=== PATIENT | male | born 1990 | race African-American/Black ===

== ENCOUNTER 2017-04-04 15:00 | Inpatient (IN) | payer OTHER ==
--- NOTE | ~2017-04-04 | PN ---
Unit #: [id number] #: [id number] Patient: TAHIR IGNACIO [id number] [facility] [address] [place] [address] [id number] MR#: [id number] NAME: TAHIR IGNACIO ROOM: [facility] Age: 26 Sex: M Admission Date: 04/04/2017 : 1990 Attending Physician: Jean-Claude Sosa M.D. Admitting Physician: Jean-Claude Sosa M.D. Primary Care Physician: Primary Care Physician Emily CISNEROS NOTES DATE OF SERVICE: 04/08/2017 DISCUSSION Tahir Ignacio is a 26-year-old male, seen on 04/08/2017. The patient interviewed, chart reviewed, and obtained information from nursing staff. The patient is sad, dysphoric, flat affect, but denied any thoughts of harming self or others. Participating in program. Compliant with medication. REVIEW OF SYSTEMS Complete review of systems unremarkable. MENTAL STATUS EXAMINATION General appearance; the patient dressed casually. Attention span and concentration, fair. Oriented in time, place, and person. Mood and affect, sad and dysphoric. Speech, monotone. Thought process, concrete. The patient denied any thoughts of harming self or others or any psychotic symptom. Recent and remote memory, poor. Insight and judgment, poor. DIAGNOSES 1. Bipolar mood disorder, not otherwise specified. 2. Cocaine use disorder, moderate. ASSESSMENT/PLAN Advised to continue with current medication and therapeutic protocol. If needed, consider further adjustment of medication. Dictated by... Latrell Beasley/fazal TD: 04/09/2017 22:09 JOB #: [id number] Unit #: [id number] #: [id number] Patient: TAHIR IGNACIO PROGRESS NOTES Page 1 of 1 X Jean-Claude Sosa MD PROGRESS NOTE
--- NOTE | ~2017-04-04 | PN ---
Unit #: [id number] #: [id number] Patient: TAHIR IGNACIO [id number] [facility] [address] [place] [address] [id number] MR#: [id number] NAME: TAHIR IGNACIO ROOM: [facility] Age: 26 Sex: M Admission Date: 04/04/2017 : 1990 Attending Physician: Jean-Claude Sosa M.D. Admitting Physician: Latrell Beasley PROGRESS NOTES DATE OF SERVICE: 04/06/2017 DISCUSSION Tahir Ignacio is a 26-year-old male, seen on 04/06/2017. The patient interviewed, chart reviewed, and obtained information from nursing staff. The patient was compliant and cooperative. Mood was sad, dysphoric, flat affect, guarded. The patient's vital signs stable; temperature 98.4, pulse 59, and blood pressure 94/59. The patient was able to maintain safe behavior, withdrawn, isolative, guarded, requested for larger portion. Complete review of systems unremarkable. MENTAL STATUS EXAMINATION General appearance, the patient dressed casually. Attention span and concentration, fair. Oriented in time, place, and person. Mood and affect, sad and dysphoric. Speech, monotone. Thought process, concrete. The patient denied any thoughts of harming self or others. Recent and remote memory, poor. Insight and judgment, poor. DIAGNOSES 1. Mood disorder, not otherwise specified. 2. Cocaine use disorder, severe. ASSESSMENT AND PLAN Advised to continue with current medication and therapeutic protocol. If needed, consider further adjustment of medication. Dictated by... Latrell Beasley/fazal TD: 04/07/2017 23:46 JOB #: [id number] Unit #: [id number] #: [id number] Patient: TAHIR IGNACIO PROGRESS NOTES Page 1 of 1 X Jean-Claude Sosa MD PROGRESS NOTE
--- NOTE | ~2017-04-04 | PN ---
Unit #: [id number] #: [id number] Patient: TAHIR IGNACIO [id number] [facility] [address] [place] [address] [id number] MR#: [id number] NAME: TAHIR IGNACIO ROOM: [facility] Age: 26 Sex: M Admission Date: 04/04/2017 : 1990 Attending Physician: Jean-Claude Sosa M.D. Admitting Physician: Jean-Claude Sosa M.D. Primary Care Physician: Primary Care Physician Emily MAYERS PROGRESS NOTES DATE 04/07/2017 DISCUSSION Mr. Tahir Ignacio is a 26-year-old male, seen on 04/07/2017. The patient dressed casually. Attention span and concentration fair. Mood and affect sad and dysphoric, withdrawn, isolative, but eating good, compliant with medication, able to participate in some of the group, able to contract for safety, making progress. REVIEW OF SYSTEMS Complete review of systems unremarkable. MENTAL STATUS EXAMINATION General appearance: Patient dressed casually. Attention span and concentration, fair. Oriented to place and person. Mood and affect, labile. Speech, monotone. Thought process, concrete. The patient denied any thoughts of harming self or others. Recent and remote memory, poor. Insight and judgment, poor. DIAGNOSES 1. Mood disorder, NOS. 2. Cocaine use disorder, severe. ASSESSMENT/PLAN Advised to continue with the current medication and therapeutic protocol, and if needed consider further adjustment of medication. Dictated by... Latrell Beasley/farshad TD: 04/08/2017 09:58 JOB #: [id number] Unit #: [id number] #: [id number] Patient: TAHIR IGNACIO PROGRESS NOTES Page 1 of 1 X Jean-Claude Sosa MD X PROGRESS NOTE
--- NOTE | ~2017-04-04 | DS ---
Unit #: [id number] #: [id number] Patient: ANAYELI ZAMORA [id number] [facility] [address] [place] [address] [id number] MR#: [id number] NAME: ANAYELI ZAMORA ROOM: [facility] Age: 26 Sex: M Admission Date: 04/04/2017 : 1990 Discharge Date: 04/09/2017 Attending Physician: Jean-Claude Sosa M.D. Primary Care Physician: Primary Care Physician No DISCHARGE SUMMARY REASON FOR ADMISSION Depression and substance abuse. DIAGNOSTIC STUDIES LABORATORY RESULTS: Urine drug screen positive for cocaine. HOSPITAL COURSE The patient was admitted to inpatient unit on 04/04/2017 and discharged on 04/09/2017. The patient's home medication resumed. The patient was treated with detox protocol and detox monitoring. The patient was able to show improvement in his mood and affect. Subsequently, the patient was discharged with a plan to follow up in outpatient program. DISCHARGE MEDICATIONS Celexa 20 mg daily for depression. DISCHARGE DIAGNOSES Psychiatric: 1. Major depressive disorder, recurrent, severe, F33.2. 2. Cocaine use disorder, severe, F14.20. Secondary diagnosis: Deferred. Medical diagnosis: Positive human immunodeficiency virus, diagnosed in 2011, the patient followed in [facility]. Stressors: Psychosocial stressors. DISCHARGE INSTRUCTIONS The patient is to follow up in outpatient clinic as per health care social worker. CONDITION ON DISCHARGE The patient was pleasant and cooperative. Denied any psychotic symptom or any suicidal ideation. PROGNOSIS Guarded. DIET AND ACTIVITY As tolerated. Dictated by... Jean-Claude Sosa M.D. Unit #: [id number] #: [id number] Patient: ANAYELI ZAMORA SZC/modl TD: 04/10/2017 03:17 JOB #: [id number] DISCHARGE SUMMARY Page 1 of 1 X Jean-Claude Sosa MD X DISCHARGE SUMMARY
--- NOTE | ~2017-04-04 | PN ---
Unit #: [id number] #: [id number] Patient: TAHIR ZAMORA [id number] [facility] [address] [place] [address] [id number] I MR#: [id number] NAME: TAHIR ZAMORA ROOM: [facility] Age: 26 Sex: M Admission Date: 04/04/2017 : 1990 Attending Physician: Jean-Claude Sosa M.D. Admitting Physician: Jean-Claude Sosa M.D. Primary Care Physician: Primary Care Physician Emily MAYERS PROGRESS NOTES DATE 04/05/2017 DISCUSSION Tahir is a 26-year-old male. The patient interviewed, chart reviewed. Obtained information from nursing staff. The patient was compliant and cooperative. Mood sad, dysphoric, flat affect guarded. The patient withdrawn, isolative. Dressed casually. Complete review of systems unremarkable. MENTAL STATUS EXAMINATION General appearance, the patient dressed casually. Attention span and concentration fair. Oriented to time, place and person. Mood and affect sad, depressed. Speech monotone. Thought process concrete. The patient reported having suicidal ideation. Denied any homicidal ideation or any psychotic symptoms. Recent and remote memory poor. Insight and judgement poor. DIAGNOSES 1. Major depression recurrent. 2. Cocaine use disorder severe. ASSESSMENT/PLAN Advise to continue with current medication and therapeutic protocol. If needed consider further adjustment of medication. Dictated by... Latrell Beasley/magy TD: 04/07/2017 01:54 JOB #: [id number] Unit #: [id number] #: [id number] Patient: TAHIR ZAMORA PROGRESS NOTES Page 1 of 1 X Jean-Claude Sosa MD PROGRESS NOTE
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
[2017-04-05 09:44] LABS: BASOPHIL# 0.1 X10e3 (0-0.3); BASOPHIL% 0.7 % (0-2.5); EOSINOPHIL# 0.2 X10e3 (0-0.7); EOSINOPHIL% 3.1 % (0.0-7.0); HEMATOCRIT 48.3 % (38.0-50.0); LYMPHOCYTE# 3.3 X10e3 (1.0-3.5); LYMPHOCYTE% 43.1 % (17.0-45.0); MEAN CELL VOLUME 88.6 FL (83-96); MEAN CORPUSCULAR HEMOGLOBIN 29.4 PG (28-34); MEAN CORPUSCULAR HGB CONC 33.2 g/dL (30-36); MEAN PLATELET VOLUME 8.1 FL (6.5-11.5); MONOCYTE# 0.6 X10e3 (0-1.0); MONOCYTE% 7.7 % (3.0-12.0); NEUTROPHIL# 3.4 X10e3 (1.5-7.1); NEUTROPHIL% 45.4 % (40-75); PLATELET COUNT 140 X10e3 (140-420); RED BLOOD COUNT 5.45 X10e (3.90-5.60); RED CELL DISTRIBUTION WIDTH 14.1 % (11.0-15.5); WHITE BLOOD COUNT 7.6 X10e3 (4.0-10.5)
[2017-04-05 09:53] LABS: DIFF IND NO
[2017-04-05 12:58] LABS: ALBUMIN SERUM 4.3 g/dL (3.5-5.0); BILIRUBIN,TOTAL 1.1 mg/dL (0.2-2.0); BUN/CREATININE RATIO 13.75; CALCIUM SERUM 9.5 mg/dL (8.4-10.2); CREATININE SERUM 1.6 mg/dL (0.6-1.4); GLOM FILT RATE Estimated 67.9 mL/min (>60); POTASSIUM 4.5 mmol/L (3.5-5.1)
== END 2017-04-09 10:45 | DRG 885 ==
LOC: P1E 17:57
PROVIDERS: Psychiatry & Neurology Psychiatry
DX: F33.2 Major depressive disorder, recurrent severe without psychotic features (principal); F14.20 Cocaine dependence, uncomplicated; Z21 Asymptomatic human immunodeficiency virus [HIV] infection status; F17.210 Nicotine dependence, cigarettes, uncomplicated
CPT/HCPCS: 80053; 85025